=== PATIENT | female | born 1945 | race Caucasian/White ===

== ENCOUNTER 2017-07-06 05:31 | Day surgery (SDC) | payer MEDICARE ==
[~2017-07-06] VITALS: Ht 152.4 cm; Wt 89.5 kg
[~2017-07-06 05:31] MED LIST: ATOR40TA78 PO; HYDR25TA6 PO; LOSA50TA6 PO; PRED20TA PO
[2017-07-06 06:18] VITALS: BP 133/86
[2017-07-06 07:11] LABS: HEMATOCRIT 38.9 % (34.6-47.8); HEMOGLOBIN 13.3 g/dL (11.7-16.4); WHITE BLOOD COUNT 10.3 x10^3/uL (3.4-10)
[2017-07-06] MEDS ORDERED: MIDAZOLAM 1 MG/ML, 5ML ONE (07:51)
[2017-07-06] MEDS ORDERED: NALOXONE 1 MG/ML, 2ML ONE (07:52)
[2017-07-06] MEDS ORDERED: FENTANYL PF 100 MCG/2ML ONE (07:52)
[2017-07-06] MEDS ORDERED: FLUMAZENIL 0.1 MG/1 ML, 5ML ONE (07:52)
[2017-07-06 08:16] LABS: DIFF TOTAL CELLS COUNTED 100 CELL DIFF
[2017-07-06 08:17] LABS: VERIFY COUNTS? YES
== END 2017-07-06 10:20 ==
LOC: OUT 05:31
PROVIDERS: ATTEND Internal Medicine Hematology & Oncology
DX: D69.6 Thrombocytopenia, unspecified (principal); D72.828 Other elevated white blood cell count; I10 Essential (primary) hypertension; E78.5 Hyperlipidemia, unspecified; M19.90 Unspecified osteoarthritis, unspecified site; Z79.899 Other long term (current) drug therapy; Z98.890 Other specified postprocedural states; Z90.49 Acquired absence of other specified parts of digestive tract; Z87.891 Personal history of nicotine dependence; Z88.8 Allergy status to other drugs, medicaments and biological substances
CPT/HCPCS: 36415; 38221; 77012; 85025; 85097; 88237; 88264; 88280; 88305; 88311; 88313; 99156; 99157; G0364; J2250; J3010; J2310

== ENCOUNTER → 2019-12-01 | Outpatient (CLI) | payer MEDICARE ==
[~2019-12-01] MED LIST changes: +LOSA50TA14 PO; -LOSA50TA6 PO
== END | disposition home or self-care (01) ==
LOC: CFH 07:10
PROVIDERS: ATTEND Family Medicine
DX: K76.0 Fatty (change of) liver, not elsewhere classified (principal); Z90.49 Acquired absence of other specified parts of digestive tract
CPT/HCPCS: 76700

== ENCOUNTER → 2020-03-03 | Outpatient (CLI) | payer MEDICARE | END | disposition home or self-care (01) | LOC: CFH 11:51 | PROVIDERS: ATTEND Internal Medicine Nephrology | DX: E11.22 Type 2 diabetes mellitus with diabetic chronic kidney disease (principal); N18.3 Chronic kidney disease, stage 3 (moderate); E78.5 Hyperlipidemia, unspecified | CPT/HCPCS: 76770 ==

== ENCOUNTER → 2020-04-12 | Outpatient (CLI) | payer MEDICARE ==
[~2020-04-12] MED LIST changes: +GADOTERATE 10 MMOL/20 ML VIAL ONE
== END | disposition home or self-care (01) ==
LOC: RAD 09:32
PROVIDERS: ATTEND Internal Medicine Gastroenterology
DX: K57.30 Diverticulosis of large intestine without perforation or abscess without bleeding (principal); N94.89 Other specified conditions associated with female genital organs and menstrual cycle; N26.1 Atrophy of kidney (terminal); R91.8 Other nonspecific abnormal finding of lung field; N28.1 Cyst of kidney, acquired
CPT/HCPCS: 72197; 74183; A9575

== ENCOUNTER → 2020-05-31 | Outpatient (CLI) | payer MEDICARE ==
[~2020-05-31] MED LIST changes: -GADOTERATE 10 MMOL/20 ML VIAL ONE; +OMNIPAQUE 350 MG/ML, 75ML BOTTLE ONE
== END | disposition home or self-care (01) ==
LOC: RAD 09:54
PROVIDERS: ATTEND Family Medicine
DX: J92.9 Pleural plaque without asbestos (principal); J47.9 Bronchiectasis, uncomplicated; J84.9 Interstitial pulmonary disease, unspecified; M40.294 Other kyphosis, thoracic region; M25.78 Osteophyte, vertebrae; R91.1 Solitary pulmonary nodule
CPT/HCPCS: 71260; Q9967

== ENCOUNTER → 2020-06-23 | Outpatient (CLI) | payer MEDICARE ==
[~2020-06-23] MED LIST changes: -OMNIPAQUE 350 MG/ML, 75ML BOTTLE ONE
== END | disposition home or self-care (01) ==
LOC: PETCFH 08:33
PROVIDERS: ATTEND Internal Medicine Hematology & Oncology
DX: J84.9 Interstitial pulmonary disease, unspecified (principal); R91.8 Other nonspecific abnormal finding of lung field; D69.6 Thrombocytopenia, unspecified
CPT/HCPCS: 78815; A9552

== ENCOUNTER → 2020-07-14 | Outpatient (CLI) | payer MEDICARE | END | disposition home or self-care (01) | LOC: CFH 10:49 | PROVIDERS: ATTEND Physician Assistant Surgical | DX: M79.662 Pain in left lower leg (principal) ==